=== PATIENT | male | born 1965 | race Caucasian/White ===

== ENCOUNTER 2019-12-20 10:30 | Emergency (ER) | payer MEDICAID ==
[~2019-12-20 10:30] MED LIST: PANT20TA3 PO; PRED20TA PO
--- NOTE | 2019-12-20 11:32 | NUR ---
NIL [id number]
== END 2019-12-20 11:34 | disposition left against medical advice (07) ==
LOC: ER 10:30
DX: R69 Illness, unspecified (principal); Z53.21 Procedure and treatment not carried out due to patient leaving prior to being seen by health care provider

== ENCOUNTER 2023-08-24 23:23 | Emergency (ER) | payer MEDICAID ==
[~2023-08-24] VITALS: Ht 182.9 cm; Wt 86.4 kg
[~2023-08-24 23:23] MED LIST changes: +PANT20TA18 PO; -PANT20TA3 PO
[2023-08-24] MEDS ORDERED: amLODIPine 5mg tablet PO ONE (23:50)
[2023-08-24 23:54] VITALS: BP_DIAS 126; TEMP 97.9; O2SAT 98
[2023-08-24] MEDS ORDERED: chlorthalidone 25mg tablet PO ONE (23:55)
[2023-08-25] VITALS: RESP 14
[2023-08-25 00:03] VITALS: BP_SYST 192; PULSE 108
== END 2023-08-25 00:11 ==
LOC: ER 23:24
DX: I10 Essential (primary) hypertension (principal); I25.2 Old myocardial infarction; Z72.89 Other problems related to lifestyle; Z79.899 Other long term (current) drug therapy
CPT/HCPCS: 99283